=== PATIENT | female | born 1945 | race Caucasian/White ===

== ENCOUNTER 2023-06-16 10:40 | Day surgery (SDC) | payer MEDICARE, OTHER ==
[2023-06-15 13:41] LABS: BASOPHILS # (AUTO) 0.1 X10'3 (0-0.2); BASOPHILS % (AUTO) 0.6 % (0-1); BILIRUBIN,URINE NEGATIVE (Neg); COLOR,URINE YELLOW (Yellow); EOSINOPHILS # (AUTO) 0.1 X10'3 (0-0.9); EOSINOPHILS % (AUTO) 0.9 % (0-6); GLUCOSE, URINE NEGATIVE (Neg); KETONES,URINE NEGATIVE (Neg); LEUKOCYTE ESTERASE ,URINE NEGATIVE (Neg); LYMPHOCYTES # (AUTO) 1.8 X10'3 (1.1-4.8); LYMPHOCYTES % (AUTO) 18.8 % (21-51); MEAN CORPUSCULAR HEMOGLOBIN 28.5 PG (27.0-31.0); MEAN CORPUSCULAR HGB CONC 33.2 g/dL (33.0-36.5); MEAN CORPUSCULAR VOLUME 85.8 FL (78-98); MEAN PLATELET VOLUME 9.2 FL (7.4-10.4); MONOCYTES # (AUTO) 0.6 X10'3 (0-0.9); MONOCYTES % (AUTO) 6.6 % (2-12); NEUTROPHILS # (AUTO) 6.9 X10'3 (1.8-7.7); NEUTROPHILS % (AUTO) 73.1 % (42-75); NITRITES, URINE NEGATIVE (Neg); OCCULT BLOOD,URINE NEGATIVE (Neg); PRE OP HEMATOCRIT 40.4 % (35.0-45.0); PRE OP HEMOGLOBIN 13.4 g/dL (12.0-16.0); PRE OP PLATELET COUNT 290 X10'3 (140-440); PRE OP WHITE BLOOD COUNT 9.5 10'3 (4.8-10.8); PROTEIN,URINE NEGATIVE (Neg); RED BLOOD COUNT 4.71 X10'6 (4.20-5.60); RED CELL DISTRIBUTION WIDTH 14.3 % (11.5-14.5); UROBILINOGEN,URINE 0.2 E.U/dL (0.2-1.0)
[2023-06-15 13:45] LABS: UA COLLECTION TYPE CLN CATCH MIDSTREAM
[2023-06-15 13:46] LABS: CLARITY,URINE CLEAR (Clear)
[2023-06-15 14:00] LABS: ALBUMIN 3.5 G/DL (3.4-5.0); ALBUMIN/GLOBULIN RATIO 0.9 (1.1-1.5); ALKALINE PHOSPHATASE 98 IU/L (46-116); BLOOD UREA NITROGEN 14 MG/DL (7-18); BUN/CREATININE RATIO 17.5 (10.0-20.0); CALCIUM 10.2 MG/DL (8.5-10.1); CHLORIDE 106 MMOL/L (99-107); PRE OP ALT 16 U/L (30-65); PRE OP ANION GAP 4 (8-16); PRE OP AST 13 U/L (10-37); PRE OP BILIRUB, TOTAL 0.4 MG/DL (0.0-1.0); PRE OP GLUCOSE 95 MG/DL (70-104); PRE OP SODIUM 138 MMOL/L (135-145); TOTAL CARBON DIOXIDE 28.5 MMOL/L (24-32); TOTAL PROTEIN 7.6 G/DL (6.4-8.2); eCRCL 52 ML/MIN; eGFR 70 ML/MIN
[2023-06-16] VITALS (13 sets, daily range): BP systolic 125–176; BP diastolic 72–96; PULSE 61–82; RESP 16–22; TEMP 97.5; O2SAT 72–100
[~2023-06-16] VITALS: Ht 162.6 cm; Wt 57.9 kg
[2023-06-16] MEDS: famotidine 20mg tablet PO ONE (05:30)
[2023-06-16] MEDS: clindamycin-Cleocin 900mg/D5W 50 ML IV ONE (05:30)
[~2023-06-16 10:40] MED LIST: CALC-336 PO; CHOL400T58 PO; CYCL1DRO2 EACHEYE; EVOL140P3 SQ; LEVO88TA7 PO; LISI40TA13 PO; OMEP20CA16 PO
[2023-06-16] MEDS: ringers solution, lacted 1,000 ML IV SCH (11:10)
[2023-06-16] MEDS ORDERED: BUPIVAcaine 2.5mg/ml inj 50ml vial (contains preservative) ONE (13:47)
[2023-06-16] MEDS ORDERED: morphine 4 MG/ML inj SYRINge IV PRN (13:50)
[2023-06-16] MEDS ORDERED: morphine 2 MG/ML inj. syringe IV PRN (13:50)
[2023-06-16] MEDS ORDERED: proCHLORperazine 10 MG/2 ml inj IV PRN (13:50)
[2023-06-16] MEDS ORDERED: ondansetron/PF 4mg/2ml inj IV PRN (13:50)
[2023-06-16] MEDS ORDERED: meperidine/PF 25mg/ml syringe IV PRN ×2 (13:50)
[2023-06-16] MEDS ORDERED: hydrALAZINE 20mg/ml inj. IV PRN (13:50)
[2023-06-16] MEDS ORDERED: labetalol 20mg/4ml (5mg/ml) syringe IV PRN (13:50)
[2023-06-16] MEDS ORDERED: ringers solution, lacted 1,000 ML IV SCH (13:50)
[2023-06-16] MEDS: BUPIVAcaine/PF 2.5 mg/ml (0.25%) 30ml vial IJ ONE (14:35)
[2023-06-16] MEDS ORDERED: glycopyrrolate 0.2mg/ml inj ONE (14:38)
[2023-06-16] MEDS ORDERED: sevoflurane 250ml liquid IH ONE (14:38)
[2023-06-16] MEDS ORDERED: midazolam 1 mg/ML 2ml injection ONE (14:42)
[2023-06-16] MEDS ORDERED: ondansetron/PF 4mg/2ml inj ONE (14:51)
[2023-06-16] MEDS ORDERED: fentaNYL /PF 50mcg/ml 5ml ampule ONE (14:51)
[2023-06-16] MEDS ORDERED: propofol inj 20 ML IV ONE (14:52)
[2023-06-16] MEDS ORDERED: LIDOcaine 2% (20mg/ml) 5ml vial ONE (14:52)
[2023-06-16] MEDS ORDERED: dexamethasone sod phosphate 4mg/ml inj. ONE (14:52)
[2023-06-16] MEDS ORDERED: rocuronium 10mg/ml inj IV ONE (14:52)
[2023-06-16] MEDS ORDERED: 0.9 % SODIUM CHLORIDE 10 ML VIAL ONE (15:02)
[2023-06-16] MEDS ORDERED: ePHEDrine 50MG/ML INJ. ONE (15:02)
[2023-06-16] MEDS ORDERED: labetalol 20mg/4ml (5mg/ml) syringe IV ONE (15:41)
[2023-06-16] MEDS: acetaminophen 1,000mg/100ml IV 100 ML IV ONE (16:26)
[2023-06-16] MEDS: meperidine/PF 25mg/ml syringe IV PRN (16:30)
[2023-06-16] MEDS: traMADol 50MG tablet PO ONE (16:58)
== END 2023-06-16 18:08 | disposition home or self-care (01) ==
LOC: PAS 10:40
PROVIDERS: ATTEND Surgery
DX: K80.10 Calculus of gallbladder with chronic cholecystitis without obstruction (principal); I10 Essential (primary) hypertension; G62.9 Polyneuropathy, unspecified; K21.9 Gastro-esophageal reflux disease without esophagitis; Z88.0 Allergy status to penicillin; Z79.899 Other long term (current) drug therapy; Z88.8 Allergy status to other drugs, medicaments and biological substances
CPT/HCPCS: 36415; 47562; 80053; 81003; 85025; J0131; J1100; J2175; J2250; J2405; J2704; J2710; J3010; J3490; J7030; J7120; Z7506; Z7508; Z7512; A4215; A4618; A7000